=== PATIENT | female | born 1930 | race Caucasian/White ===

== ENCOUNTER 2016-11-01 13:29 | Emergency (ER) | payer OTHER, MEDICARE ==
--- NOTE | 2016-11-01 15:20 | DIAGNOSTIC IMAGING REPORT ---
PROCEDURE: XR CHEST 2 VIEW INDICATION: FEVER, initial encounter TECHNIQUE: PA and lateral view. COMPARISON: None. FINDINGS: Hyperinflation and peribronchial cuffing. No infiltrates. Cardiovascular structures are normal. Bony thorax is unremarkable. IMPRESSION: 1. COPD and bronchitis
--- NOTE | 2016-11-01 16:47 | ED CLINICAL REPORT ---
Clinical Report - Physicians/Mid Levels [facility] [address] [place] [address] 11/01/2016 13:32 Patient: DONNA RUBIN V Time Seen: 1430 Nov 01 2016. Arrived- By private vehicle. Historian- patient and family. HISTORY OF PRESENT ILLNESS Chief Complaint: COUGH, CHILLS and "FLU". This started 7 days and is still present. The patient has had a cough. No sore throat. (Patient presents here from independent living, with a family member, and reports she was recently diagnosed with influenza, this time was advised to [facility], however had a at home and did not wish to do so, this was 5 days previously over the last 5 days she has been gradually improving, continues to have a cough, weakness, however has been able to ambulate, still has a low appetite. No fevers. No headache. No chest pain.). Additional history - No known contact with a sick individual. REVIEW OF SYSTEMS No headache, nausea, vomiting, pedal edema or calf pain. All systems otherwise negative, except as recorded above. PAST HISTORY Problems: COPD - Chronic Obstructive Pulmonary Disease. Macular Degeneration. Blindness. Hypertension. Medications: AmLODIPine Besylate Oral. Aspirin Oral. Lisinopril Oral. Metoprolol Succinate ER Oral. Multivitamins Oral. Ocuvite Oral. Omeprazole Oral. Simvastatin Oral. Valium Oral. Non-Asprin PM. Allergies: Latex. SOCIAL HISTORY Smoker- current status unknown (very long history > 70 years). No alcohol use or drug use. ADDITIONAL NOTES The nursing notes have been reviewed. PHYSICAL EXAM Vital Signs: 11/01/2016 14:02 BP: 116/64. HR: 57. RR: 20. O2 saturation: 92%. Temp: 98.2 F. Appearance: Alert. Eyes: Eyes normal inspection. ENT: Ears normal. Pharynx normal. No tonsillar exudate. Neck: Normal inspection. No meningeal signs. CVS: Normal heart rate and rhythm. Heart sounds normal. No cardiac murmur. Respiratory: No respiratory distress. Wheezing present. Breath sounds normal. No retractions. Abdomen: No guarding or rebound tenderness. LABS, X-RAYS, AND EKG Chest X-ray: (IMPRESSION: 1. COPD and bronchitis Electronically Final signed by:Oscar Gustafson MD 11/01/2016 3:20:11 PM). Laboratory Tests: CBC w Diff: (HOWARD: 11/01/2016 14:50) ( [facility] 11/01/2016 14:57) Final results Test Result Flag Units (Reference) WHITE BLOOD COUNT 5.1 K/uL (4.5-11.5) RED BLOOD COUNT 4.61 M/uL (4.00-5.20) HEMOGLOBIN 13.8 gm/dL (12.0-16.0) HEMATOCRIT 41.3 % (36.0-46.0) MEAN CELL VOLUME 90 fL (80-100) MEAN CORPUSCULAR HGB 30 pg (26-34) MEAN CORPUSCULAR HGB CONC 34 g/dL (31-37) RED CELL DISTRIBUTION WIDTH 13.6 % (11.6-14.8) PLATELET COUNT 170 K/uL (150-400) NEUTROPHIL % 65.6 % (50-75) LYMPH % 22.9 L % (25-40) MONO % 10.4 % (3-14) EOSINOPHIL % 1.0 % (0-4) BASOPHIL % 0.1 % (0-2) CHEM 13 PANEL: (HOWARD: 11/01/2016 14:50) ( [facility] 11/01/2016 15:13) Final results Test Result Flag Units (Reference) GLUCOSE 107 mg/dL (70-110) BUN 24 H mg/dL (7-18) CREATININE 0.9 mg/dL (0.6-1.3) Estimated GFR >60 mL/min Estimated GFR- >60 mL/min Note: Persistent reduction over 3 months in eGFR<60 mL/min/1.73 m2 defines CKD. Patients with eGFR values>=60 mL/min/1.73 m2 may also have CKD if evidence ofpersistent proteinuria. Additional information may be foundat www.kidney.org. SODIUM 142 mmol/L (136-145) POTASSIUM 3.4 L mmol/L (3.5-5.1) CHLORIDE 104 mmol/L (98-107) CARBON DIOXIDE 27 mmol/L (21-32) CALCIUM 8.9 mg/dL (8.5-10.1) TOTAL PROTEIN 7.2 g/dL (6.4-8.2) ALBUMIN 3.6 g/dL (3.3-5.0) BILIRUBIN, TOTAL 0.6 mg/dL (0.0-1.0) ALKALINE PHOSPHATASE 69 U/L (46-116) AST (SGOT) 77 H U/L (15-37) ALT (SGPT) 79 H U/L (12-78) CPK 175 U/L (24-260) MAGNESIUM 2.0 mg/dL (1.8-2.4) TROPONIN I <0.05 ng/mL (0.00-1.5) TROPONIN REFERENCE RANGE:<0.1 NEGATIVE0.1-1.5 INDETERMINANT>1.5 POSITIVE . PROGRESS AND PROCEDURES Course of Care: Patient here in the air with wheezing clearing. Chest x-ray looked unremarkable, bronchitis, questionable whether this is acute or chronic. Patient at this time is very stable, able to ambulate, does ably with a cane. She is legally blind. Able to do so and feels well rested here in the ER, she is falling asleep. Given IV normal saline 1 L. And discharged to family. 11/01/2016 17:19 BP: 110/67. HR: 92. RR: 20. O2 saturation: 95%. Temp: 98 F. Patient is stable. Physical exam findings are improved. Symptoms better. Patient/family counseled. Disposition: Discharged. CLINICAL IMPRESSION Acute bronchitis. INSTRUCTIONS Drink plenty of fluids. Do not smoke. Prescription Medications: Doxycycline 100 mg: Take 1 capsule orally every 12 hours for 10 days. No refill. Follow-up: Follow up with your doctor Thursday. (Electronically signed by Chloe Mejia P.A.-C 11/01/2016 17:34) Addenda for DONNA RUBIN V VisitID: [id number] Date: 11/01/2016 11/01/2016 17:37 EKG: vent rate 66 pr interval 138, qrs 92, no st specific st changes, normal sinus (Electronically signed by Chloe Mejia P.A.-C - 11/01/2016 17:37)
--- NOTE | 2016-11-01 16:47 | ED NURSING NOTES ---
Clinical Report - Nurses [facility] [place] [address] 11/01/2016 13:32 Patient: DONNA RUBIN V TRIAGE Triage time 14:02. Acuity: LEVEL 3. Chief Complaint: "FLU". Alert. No acute distress. --14:07 Willie Wynn R.N. 14:02 11/01/16. BP: 116/64. HR: 57. RR: 20. O2 saturation: 92%. Temp: 98.2 F. Pain level now 510. --14: Willie Wynn R.N. Weight: 47.6 kg stated. Height/Length: 60 inches Per Patient. BMI: 20.5. --14:06 Willie Wynn R.N. Medications Non-Asprin PM. --14:15 Willie Wynn R.N. AmLODIPine Besylate Oral. Aspirin Oral. Lisinopril Oral. Metoprolol Succinate ER Oral. Multivitamins Oral. Ocuvite Oral. Omeprazole Oral. Simvastatin Oral. Valium Oral. --14:15 Willie Wynn R.N. Allergies Latex. --17:26 Willie Wynn R.N. History Arrived by private vehicle. Historian: patient and family. Accompanied by family. Onset. (5 days ago). ( patient has been ill for five days. Was seen at clinic in [facility] and advised to be hospitalized but declined because there was no one to care for her pet. She has improved some since then but is still weak and feels she may need hospitalization and has made arrangement to have pet cared for.). Treatment HAMMER SMITH: Recently seen at another facility in a clinic. --14:07 Willie Wynn R.N. PAST MEDICAL HX: Hypertension. Blindness. --17:29 Willie Wynn R.N. ADDITIONAL SURGERIES: Lumpectomy of breast. --17:29 Willie Wynn R.N. Interventions ID band on patient. To room. --14:07 Kingsley, Willie, R.N. PHYSICAL ASSESSMENT GENERAL / NEURO / PSYCH: Alert. Oriented X 4. Appears in no acute distress. RESPIRATORY: Mild respiratory distress. Expiratory wheezes present. CVS: Normal sinus rhythm noted. GI / : Abdomen soft. SKIN: Skin is warm and dry. --14:09 Willie Wynn R.N. NURSING PROGRESS NOTES Call light placed in reach. Bed placed in lowest position. --14:10 Willie Wynn R.N. 14:47 11/01/2016 Site #1 started via IV in the right forearm with an 22g angiocath; one attempt. Blood drawn: rainbow set. Labeled in the presence of the patient and sent to the lab. Saline lock flushed with 10 mL saline. --14:52 Willie Wynn R.N. 14:52 11/01/2016 Started bag #1 1000 mL IV Fluids IV NS (Saline); at 1000 mL/hr over 1 hour(s) via site #1 --14:52 Willie Wynn R.N. EKG time: (1456). EKG was performed by a tech and shown to the ED physician. --15:08 Lino Mcgill 15:15 11/01/2016 Duoneb (Ipratropium-Albuterol) Neb TX Nebulizer 1 unit dose given. Given by the respiratory therapist. Allergies verified and confirmed 5 rights. Oskar Canales --15:30 Oskar Canales ( Pt was walked about 30 feet with assistance. Pt felt dizzy at first but then felt better as she continued to walk. Lowest Spo2 noted was 92% on room air.). --16:01 Lino Mcgill 15:30 11/01/16. BP: 116/86. HR: 65. RR: 22. O2 saturation: 95%. Temp: 98.8 F. Pain level now 10. --16:15 Willie Wynn R.N. 16:15 11/01/16. BP: 117/67. HR: 67. RR: 20. O2 saturation: 95%. Pain level now /10. --16:16 Willie Wynn R.N. 16:20. EKG time: (16:20). EKG was performed by a tech and shown to the ED physician and PA. ( repeat EKG done). --16:43 Aliza Ruvalcaba 16:23 11/01/2016 IV Fluids IV NS Discontinued: bag #1 infused. Total amount infused: 1000 mL. --17:23 Willie Wynn R.N. 16:55 11/01/2016 DOXYCYCLINE HYCLATE PO Capsules 100 mg given. --17:00 Willie Wynn R.N. 17:19 11/01/2016 Site #1 removed upon discharge. Catheter intact. Bandaid applied. --17:24 Willie Wynn R.N. DISPOSITION / DISCHARGE Condition at departure: unchanged. ( Patient feels that she can go home. IV DCed. Assisted to lobby). No learning barriers present. Discharge instructions provided and reviewed with the patient. Patient verbalized understanding. Written instructions provided in Albanian. The patient was discharged by the physician catering administrative assistant. She was discharged home and accompanied by family. She left the Emergency Department in a wheelchair. --17:22 Willie Wynn R.N. 17:19 11/01/16. BP: 110/67. HR: 92. RR: 20. O2 saturation: 95%. Temp: 98 F. Pain level now 5/10. --17:22 Willie Wynn R.N. Locked/Released at 11/02/2016 9:00 by Willie Wynn R.N.
--- NOTE | 2016-11-01 16:47 | ED NURSING NOTES ---
Clinical Report - Nurses [facility] [address] 11/01/2016 13:32 Patient: DONNA RUBIN V TRIAGE Triage time 14:02. Acuity: LEVEL 3. Chief Complaint: "FLU". Alert. No acute distress. --14:07 Willie Wynn R.N. 14:02 11/01/16. BP: 116/64. HR: 57. RR: 20. O2 saturation: 92%. Temp: 98.2 F. Pain level now 510. --14: Willie Wynn R.N. Weight: 47.6 kg stated. Height/Length: 60 inches Per Patient. BMI: 20.5. --14:06 Willie Wynn R.N. Medications Non-Asprin PM. --14:15 Willie Wynn R.N. AmLODIPine Besylate Oral. Aspirin Oral. Lisinopril Oral. Metoprolol Succinate ER Oral. Multivitamins Oral. Ocuvite Oral. Omeprazole Oral. Simvastatin Oral. Valium Oral. --14:15 Willie Wynn R.N. Allergies Latex. --17:26 Willie Wynn R.N. History Arrived by private vehicle. Historian: patient and family. Accompanied by family. Onset. (5 days ago). ( patient has been ill for five days. Was seen at clinic in [facility] and advised to be hospitalized but declined because there was no one to care for her pet. She has improved some since then but is still weak and feels she may need hospitalization and has made arrangement to have pet cared for.). Treatment DEVELOPMENT REPRESENTATIVE: Recently seen at another facility in a clinic. --14:07 Willie Wynn R.N. PAST MEDICAL HX: Hypertension. Blindness. --17:29 Willie Wynn R.N. ADDITIONAL SURGERIES: Lumpectomy of breast. --17:29 Willie Wynn R.N. Interventions ID band on patient. To room. --14:07 Kingsley, Willie, R.N. PHYSICAL ASSESSMENT GENERAL / NEURO / PSYCH: Alert. Oriented X 4. Appears in no acute distress. RESPIRATORY: Mild respiratory distress. Expiratory wheezes present. CVS: Normal sinus rhythm noted. GI / : Abdomen soft. SKIN: Skin is warm and dry. --14:09 Willie Wynn R.N. NURSING PROGRESS NOTES Call light placed in reach. Bed placed in lowest position. --14:10 Willie Wynn R.N. 14:47 11/01/2016 Site #1 started via IV in the right forearm with an 22g angiocath; one attempt. Blood drawn: rainbow set. Labeled in the presence of the patient and sent to the lab. Saline lock flushed with 10 mL saline. --14:52 Willie Wynn R.N. 14:52 11/01/2016 Started bag #1 1000 mL IV Fluids IV NS (Saline); at 1000 mL/hr over 1 hour(s) via site #1 --14:52 Willie Wynn R.N. EKG time: (1456). EKG was performed by a tech and shown to the ED physician. --15:08 Lino Mcgill 15:15 11/01/2016 Duoneb (Ipratropium-Albuterol) Neb TX Nebulizer 1 unit dose given. Given by the respiratory therapist. Allergies verified and confirmed 5 rights. Oskar Canales --15:30 Oskar Canales ( Pt was walked about 30 feet with assistance. Pt felt dizzy at first but then felt better as she continued to walk. Lowest Spo2 noted was 92% on room air.). --16:01 Lino Mcgill 15:30 11/01/16. BP: 116/86. HR: 65. RR: 22. O2 saturation: 95%. Temp: 98.8 F. Pain level now 10. --16:15 Willie Wynn R.N. 16:15 11/01/16. BP: 117/67. HR: 67. RR: 20. O2 saturation: 95%. Pain level now /10. --16:16 Willie Wynn R.N. 16:20. EKG time: (16:20). EKG was performed by a tech and shown to the ED physician and PA. ( repeat EKG done). --16:43 Aliza Ruvalcaba 16:23 11/01/2016 IV Fluids IV NS Discontinued: bag #1 infused. Total amount infused: 1000 mL. --17:23 Willie Wynn R.N. 16:55 11/01/2016 DOXYCYCLINE HYCLATE PO Capsules 100 mg given. --17:00 Willie Wynn R.N. 17:19 11/01/2016 Site #1 removed upon discharge. Catheter intact. Bandaid applied. --17:24 Willie Wynn R.N. DISPOSITION / DISCHARGE Condition at departure: unchanged. ( Patient feels that she can go home. IV DCed. Assisted to lobby). No learning barriers present. Discharge instructions provided and reviewed with the patient. Patient verbalized understanding. Written instructions provided in Guinean. The patient was discharged by the physician quality assistant. She was discharged home and accompanied by family. She left the Emergency Department in a wheelchair. --17:22 Willie Wynn R.N. 17:19 11/01/16. BP: 110/67. HR: 92. RR: 20. O2 saturation: 95%. Temp: 98 F. Pain level now 5/10. --17:22 Willie Wynn R.N. Locked/Released at 11/02/2016 9:00 by Willie Wynn R.N.
--- NOTE | 2016-11-01 16:47 | ED ORDER SUMMARY ---
..... Patient: DONNA RUBIN V OrderSheet [facility] VisitID: [id number] [address] [place] [address] 86y, F Registration Date/Time: 11/01/2016 ORDER SHEET Weight: 47.6 kg (stated) Allergies: Latex GENERAL ORDERS: Chest 2V Urgent (14:16 11/01/2016 EKoroleva P.A.-C) (Ack 14:32 [place]) (14:32 Hoa) Marketing Project Coordinator (Continuous) (14:17 11/01/2016 EKoroleva P.A.-C) (14:50 GMarshall R.N.) Cardiac Panel Stat (14:17 11/01/2016 EKoroleva P.A.-C) (Ack 14:32 [place]) (14:50 GMarshall R.N.) EKG - ER Stat (14:17 11/01/2016 EKoroleva P.A.-C) (14:50 GMarshall R.N.) EKG - ER Stat (16:05 11/01/2016 EKoroleva P.A.-C) (16:18 [place]) MEDICATION ORDERS: DuoNeb Neb Tx 1 unit dose (NOW) (14:51 11/01/2016 EKoroleva P.A.-C) (15:30 JZiglar) Doxycycline Hyclate PO 100 mg (NOW) (16:45 11/01/2016 EKoroleva P.A.-C) (17:00 GMarshall R.N.) IV FLUIDS: IV NS : initial bolus 1000 mL (1000 mL/hr), then 100 mL/hr for X1 (NOW); Ivan (14:17 11/01/2016 EKoroleva P.A.-C) (14:52 GMarshall R.N.) ORDER SHEET NOTES: [Electronically signed by Chloe Mejia P.A.-C (17:34 11/01/2016)] [Electronically signed by Willie Wynn R.N. (09:00 11/02/2016)] [Electronically locked/signed by Willie Wynn R.N. (09:00 11/02/2016)]
--- NOTE | 2016-11-01 16:47 | ED CLINICAL REPORT ---
Clinical Report - Physicians/Mid Levels [facility] [address] [place] [address] 11/01/2016 13:32 Patient: DONNA RUBIN V Time Seen: 1430 Nov 01 2016. Arrived- By private vehicle. Historian- patient and family. HISTORY OF PRESENT ILLNESS Chief Complaint: COUGH, CHILLS and "FLU". This started 7 days and is still present. The patient has had a cough. No sore throat. (Patient presents here from independent living, with a family member, and reports she was recently diagnosed with influenza, this time was advised to [facility], however had a at home and did not wish to do so, this was 5 days previously over the last 5 days she has been gradually improving, continues to have a cough, weakness, however has been able to ambulate, still has a low appetite. No fevers. No headache. No chest pain.). Additional history - No known contact with a sick individual. REVIEW OF SYSTEMS No headache, nausea, vomiting, pedal edema or calf pain. All systems otherwise negative, except as recorded above. PAST HISTORY Problems: COPD - Chronic Obstructive Pulmonary Disease. Macular Degeneration. Blindness. Hypertension. Medications: AmLODIPine Besylate Oral. Aspirin Oral. Lisinopril Oral. Metoprolol Succinate ER Oral. Multivitamins Oral. Ocuvite Oral. Omeprazole Oral. Simvastatin Oral. Valium Oral. Non-Asprin PM. Allergies: Latex. SOCIAL HISTORY Smoker- current status unknown (very long history > 70 years). No alcohol use or drug use. ADDITIONAL NOTES The nursing notes have been reviewed. PHYSICAL EXAM Vital Signs: 11/01/2016 14:02 BP: 116/64. HR: 57. RR: 20. O2 saturation: 92%. Temp: 98.2 F. Appearance: Alert. Eyes: Eyes normal inspection. ENT: Ears normal. Pharynx normal. No tonsillar exudate. Neck: Normal inspection. No meningeal signs. CVS: Normal heart rate and rhythm. Heart sounds normal. No cardiac murmur. Respiratory: No respiratory distress. Wheezing present. Breath sounds normal. No retractions. Abdomen: No guarding or rebound tenderness. LABS, X-RAYS, AND EKG Chest X-ray: (IMPRESSION: 1. COPD and bronchitis Electronically Final signed by:Oscar Gustafson MD 11/01/2016 3:20:11 PM). Laboratory Tests: CBC w Diff: (HOWARD: 11/01/2016 14:50) ( [facility] 11/01/2016 14:57) Final results Test Result Flag Units (Reference) WHITE BLOOD COUNT 5.1 K/uL (4.5-11.5) RED BLOOD COUNT 4.61 M/uL (4.00-5.20) HEMOGLOBIN 13.8 gm/dL (12.0-16.0) HEMATOCRIT 41.3 % (36.0-46.0) MEAN CELL VOLUME 90 fL (80-100) MEAN CORPUSCULAR HGB 30 pg (26-34) MEAN CORPUSCULAR HGB CONC 34 g/dL (31-37) RED CELL DISTRIBUTION WIDTH 13.6 % (11.6-14.8) PLATELET COUNT 170 K/uL (150-400) NEUTROPHIL % 65.6 % (50-75) LYMPH % 22.9 L % (25-40) MONO % 10.4 % (3-14) EOSINOPHIL % 1.0 % (0-4) BASOPHIL % 0.1 % (0-2) CHEM 13 PANEL: (HOWARD: 11/01/2016 14:50) ( [facility] 11/01/2016 15:13) Final results Test Result Flag Units (Reference) GLUCOSE 107 mg/dL (70-110) BUN 24 H mg/dL (7-18) CREATININE 0.9 mg/dL (0.6-1.3) Estimated GFR >60 mL/min Estimated GFR- >60 mL/min Note: Persistent reduction over 3 months in eGFR<60 mL/min/1.73 m2 defines CKD. Patients with eGFR values>=60 mL/min/1.73 m2 may also have CKD if evidence ofpersistent proteinuria. Additional information may be foundat www.kidney.org. SODIUM 142 mmol/L (136-145) POTASSIUM 3.4 L mmol/L (3.5-5.1) CHLORIDE 104 mmol/L (98-107) CARBON DIOXIDE 27 mmol/L (21-32) CALCIUM 8.9 mg/dL (8.5-10.1) TOTAL PROTEIN 7.2 g/dL (6.4-8.2) ALBUMIN 3.6 g/dL (3.3-5.0) BILIRUBIN, TOTAL 0.6 mg/dL (0.0-1.0) ALKALINE PHOSPHATASE 69 U/L (46-116) AST (SGOT) 77 H U/L (15-37) ALT (SGPT) 79 H U/L (12-78) CPK 175 U/L (24-260) MAGNESIUM 2.0 mg/dL (1.8-2.4) TROPONIN I <0.05 ng/mL (0.00-1.5) TROPONIN REFERENCE RANGE:<0.1 NEGATIVE0.1-1.5 INDETERMINANT>1.5 POSITIVE . PROGRESS AND PROCEDURES Course of Care: Patient here in the air with wheezing clearing. Chest x-ray looked unremarkable, bronchitis, questionable whether this is acute or chronic. Patient at this time is very stable, able to ambulate, does ably with a cane. She is legally blind. Able to do so and feels well rested here in the ER, she is falling asleep. Given IV normal saline 1 L. And discharged to family. 11/01/2016 17:19 BP: 110/67. HR: 92. RR: 20. O2 saturation: 95%. Temp: 98 F. Patient is stable. Physical exam findings are improved. Symptoms better. Patient/family counseled. Disposition: Discharged. CLINICAL IMPRESSION Acute bronchitis. INSTRUCTIONS Drink plenty of fluids. Do not smoke. Prescription Medications: Doxycycline 100 mg: Take 1 capsule orally every 12 hours for 10 days. No refill. Follow-up: Follow up with your doctor Thursday. (Electronically signed by Chloe Mejia P.A.-C 11/01/2016 17:34) Addenda for DONNA RUBIN V VisitID: [id number] Date: 11/01/2016 11/01/2016 17:37 EKG: vent rate 66 pr interval 138, qrs 92, no st specific st changes, normal sinus (Electronically signed by Chloe Mejia P.A.-C - 11/01/2016 17:37)
--- NOTE | 2016-11-01 16:47 | ED ORDER SUMMARY ---
..... Patient: DONNA RUBIN V OrderSheet [facility] VisitID: [id number] [address] [place] [address] 86y, F Registration Date/Time: 11/01/2016 ORDER SHEET Weight: 47.6 kg (stated) Allergies: Latex GENERAL ORDERS: Chest 2V Urgent (14:16 11/01/2016 EKoroleva P.A.-C) (Ack 14:32 [place]) (14:32 Hoa) Production Potter (Continuous) (14:17 11/01/2016 EKoroleva P.A.-C) (14:50 GMarshall R.N.) Cardiac Panel Stat (14:17 11/01/2016 EKoroleva P.A.-C) (Ack 14:32 [place]) (14:50 GMarshall R.N.) EKG - ER Stat (14:17 11/01/2016 EKoroleva P.A.-C) (14:50 GMarshall R.N.) EKG - ER Stat (16:05 11/01/2016 EKoroleva P.A.-C) (16:18 [place]) MEDICATION ORDERS: DuoNeb Neb Tx 1 unit dose (NOW) (14:51 11/01/2016 EKoroleva P.A.-C) (15:30 JZiglar) Doxycycline Hyclate PO 100 mg (NOW) (16:45 11/01/2016 EKoroleva P.A.-C) (17:00 GMarshall R.N.) IV FLUIDS: IV NS : initial bolus 1000 mL (1000 mL/hr), then 100 mL/hr for X1 (NOW); Ivan (14:17 11/01/2016 EKoroleva P.A.-C) (14:52 GMarshall R.N.) ORDER SHEET NOTES: [Electronically signed by Chloe Mejia P.A.-C (17:34 11/01/2016)] [Electronically signed by Willie Wynn R.N. (09:00 11/02/2016)] [Electronically locked/signed by Willie Wynn R.N. (09:00 11/02/2016)]
--- NOTE | 2016-11-02 09:00 | ED MED RECONCILIATION SUMMARY ---
Patient: DONNA RUBIN V Medication Reconciliation Report [facility] VisitID: [id number] [address] [place] [address] 86y, F Registration Date/Time: 11/01/2016 Weight: 47.6 kg Height/Length: 60 in. BMI: 20.5 ALLERGIES: Latex The patient's Home Medications are listed below: THE FOLLOWING MEDICATIONS NEED TO BE RECONCILED: AmLODIPine Besylate Oral Aspirin Oral Lisinopril Oral Metoprolol Succinate ER Oral Multivitamins Oral Non-Asprin PM Ocuvite Oral Omeprazole Oral Simvastatin Oral Valium Oral The source(s) of the original Home Medication information: Not obtained. The following Medications were given to the patient in the Emergency Department: IV NS IV Fluids bolus 0, then 1000 mL/hr, administered: 11/01/2016 2:52:00 PM Duoneb [Neb Tx] Neb TX 1 unit dose, administered: 11/01/2016 3:15:00 PM DOXYCYCLINE HYCLATE [PO] PO 100 mg, administered: 11/01/2016 4:55:00 PM The following Medications were prescribed to the patient: Doxycycline 100 mg: Take 1 capsule orally every 12 hours for 10 days. No refill. -- Chloe Mejia, SuadC
--- NOTE | 2016-11-02 09:00 | ED MED RECONCILIATION SUMMARY ---
Patient: DONNA RUBIN V Medication Reconciliation Report [facility] VisitID: [id number] [address] [place] [address] 86y, F Registration Date/Time: 11/01/2016 Weight: 47.6 kg Height/Length: 60 in. BMI: 20.5 ALLERGIES: Latex The patient's Home Medications are listed below: THE FOLLOWING MEDICATIONS NEED TO BE RECONCILED: AmLODIPine Besylate Oral Aspirin Oral Lisinopril Oral Metoprolol Succinate ER Oral Multivitamins Oral Non-Asprin PM Ocuvite Oral Omeprazole Oral Simvastatin Oral Valium Oral The source(s) of the original Home Medication information: Not obtained. The following Medications were given to the patient in the Emergency Department: IV NS IV Fluids bolus 0, then 1000 mL/hr, administered: 11/01/2016 2:52:00 PM Duoneb [Neb Tx] Neb TX 1 unit dose, administered: 11/01/2016 3:15:00 PM DOXYCYCLINE HYCLATE [PO] PO 100 mg, administered: 11/01/2016 4:55:00 PM The following Medications were prescribed to the patient: Doxycycline 100 mg: Take 1 capsule orally every 12 hours for 10 days. No refill. -- Chloe Mejia, SuadC
--- NOTE | 2016-11-02 09:00 | ED MAR SUMMARY ---
..... Medication Administration Record [facility] [address] [place] [address] Patient: DONNA RUBIN V Visit ID: [id number] 86y, F Weight: 47.6 kg Height/Length: 60 in BMI: 20.5 ALLERGIES: Latex Start 14:52 11/01/2016 Willie Wynn R.N., Stop 16:23 11/01/2016 Willie Wynn R.N. Medication Administered: IV NS (SALINE), Dose: IV Fluids over 1 hour(s), Rate: 1000 mL/hr, Dispensed: 1000 mL bag, Site: #1 right forearm. Medication Ordered: IV NS : initial bolus 1000 mL (1000 mL/hr), then 100 mL/hr for X1 (NOW); Ivan. Given 15:15 11/01/2016 Oskar Canales, Medication Administered: DUONEB [NEB TX] (IPRATROPIUM-ALBUTEROL), Dose: 1 unit dose Nebulizer Neb TX. Medication Ordered: DuoNeb Neb Tx 1 unit dose (NOW). Given 16:55 11/01/2016 Willie Wynn R.N. Medication Administered: DOXYCYCLINE HYCLATE [PO], Dose: 100 mg Capsules PO. Medication Ordered: Doxycycline Hyclate PO 100 mg (NOW).
--- NOTE | 2016-11-02 09:00 | ED DISCHARGE INSTRUCTIONS ---
Patient: DONNA RUBIN V General Instructions [facility] VisitID: [id number] [place] [address] 86y, F Registration Date/Time: 11/01/2016 Acute bronchitis. INSTRUCTIONS Drink plenty of fluids. Do not smoke. Prescription Medications: Doxycycline 100 mg: Take 1 capsule orally every 12 hours for 10 days. No refill. Follow-up: Follow up with your doctor Thursday. ADDITIONAL INFORMATION Bronchitis (Adult: Abx Tx) BRONCHITIS is an infection of the air passages (bronchial tubes). It often occurs during the common cold. Symptoms include cough with mucus (phlegm) and low-grade fever. Bronchitis usually lasts 7-14 days. Mild cases can be treated with simple home remedies. More severe infection is treated with an antibiotic. Home Care: If symptoms are severe, rest at home for the first 2-3 days. When you resume activity, don't let yourself get too tired. Do not smoke. Avoid being exposed to the smoke of others. You may use acetaminophen (Tylenol) or ibuprofen (Motrin, Advil) to control fever or pain, unless another medicine was prescribed for this. [NOTE: If you have chronic liver or kidney disease or ever had a stomach ulcer or GI bleeding, talk with your doctor before using these medicines.] Your appetite may be poor, so a light diet is fine. Avoid dehydration by drinking 6-8 glasses of fluids per day (water, soft, drinks, juices, tea, soup, etc.). Extra fluids will help loosen secretions in the lungs. [id number] cough medicines that containdextromethorphan(such as Robitussin DM) and decongestants (Actifed or Sudafed) may help relieve cough and congestion. [NOTE: Do not use decongestants if you have high blood pressure.] Finish all antibiotic medicine, even if you are feeling better after only a few days. Follow Up with your doctor or as directed if you dont start to feel better after three days. [NOTE: If you are age 65 or older, or if you have chronic asthma or COPD, we recommend a PNEUMOCOCCAL VACCINATION every five years and a yearly INFLUENZAVACCINATION (FLU-SHOT) every . Ask your doctor about this. If you had an X-ray, a radiologist will review it. You will be notified of any new findings that may affect your care.] Get Prompt Medical Attention if any of the following occur: Fever over 100.4F (38.0C) for more than three days Trouble breathing, wheezing or pain with breathing Coughing up blood or increased amounts of colored sputum Weakness, drowsiness, headache, facial pain, ear pain or a stiff neck You have been given the following additional information: Bronchitis, Antiobiotic Treatment (Adult) (Electronically signed by Chloe Mejia P.A.-C 11/01/2016 17:34)
--- NOTE | 2016-11-02 09:00 | ED MAR SUMMARY ---
..... Medication Administration Record [facility] [address] [place] [address] Patient: DONNA RUBIN V Visit ID: [id number] 86y, F Weight: 47.6 kg Height/Length: 60 in BMI: 20.5 ALLERGIES: Latex Start 14:52 11/01/2016 Willie Wynn R.N., Stop 16:23 11/01/2016 Willie Wynn R.N. Medication Administered: IV NS (SALINE), Dose: IV Fluids over 1 hour(s), Rate: 1000 mL/hr, Dispensed: 1000 mL bag, Site: #1 right forearm. Medication Ordered: IV NS : initial bolus 1000 mL (1000 mL/hr), then 100 mL/hr for X1 (NOW); Ivan. Given 15:15 11/01/2016 Oskar Canales, Medication Administered: DUONEB [NEB TX] (IPRATROPIUM-ALBUTEROL), Dose: 1 unit dose Nebulizer Neb TX. Medication Ordered: DuoNeb Neb Tx 1 unit dose (NOW). Given 16:55 11/01/2016 Willie Wynn R.N. Medication Administered: DOXYCYCLINE HYCLATE [PO], Dose: 100 mg Capsules PO. Medication Ordered: Doxycycline Hyclate PO 100 mg (NOW).
== END 2016-11-01 17:20 | disposition home or self-care (01) ==
LOC: ED SRH 13:29
DX: J20.9 Acute bronchitis, unspecified (principal); J44.0 Chronic obstructive pulmonary disease with (acute) lower respiratory infection; I10 Essential (primary) hypertension; Z79.82 Long term (current) use of aspirin; Z79.899 Other long term (current) drug therapy; Z72.0 Tobacco use
CPT/HCPCS: 90100; 90616; 92610; 92720; 95059